=== PATIENT | male | born 1990 | race Caucasian/White ===

== ENCOUNTER 2019-10-31 19:03 | Emergency (ER) | payer SELFPAY ==
[~2019-10-31] VITALS: Ht 162.6 cm; Wt 73.0 kg
[2019-10-31 19:17] VITALS: Ht 162.6 cm; Wt 73.0 kg
[2019-10-31 21:41] VITALS: BP 125/82
== END 2019-10-31 21:41 | disposition home or self-care (01) ==
LOC: ED 19:03
DX: R04.0 Epistaxis (principal); L98.9 Disorder of the skin and subcutaneous tissue, unspecified

== ENCOUNTER 2019-11-06 16:21 | Emergency (ER) | payer SELFPAY ==
[~2019-11-06] VITALS: Ht 167.6 cm; Wt 72.1 kg
[2019-11-06 16:52] VITALS: Ht 167.6 cm; Wt 72.1 kg
[2019-11-06 17:17] VITALS: BP 131/84
== END 2019-11-06 17:17 | disposition home or self-care (01) ==
LOC: ED 16:21
DX: L76.22 Postprocedural hemorrhage of skin and subcutaneous tissue following other procedure (principal); S01.21XA Laceration without foreign body of nose, initial encounter; X58.XXXA Exposure to other specified factors, initial encounter; Y93.89 Activity, other specified; Y92.89 Other specified places as the place of occurrence of the external cause; Y99.8 Other external cause status

== ENCOUNTER 2019-11-09 22:13 | Emergency (ER) | payer SELFPAY ==
[~2019-11-09] VITALS: Ht 162.6 cm; Wt 74.0 kg
[2019-11-09 23:01] VITALS: Ht 162.6 cm; Wt 74.0 kg
[2019-11-10 00:52] VITALS: BP 129/76
== END 2019-11-10 00:52 | disposition home or self-care (01) ==
LOC: ED 22:13
DX: R04.0 Epistaxis (principal); D18.09 Hemangioma of other sites; F10.20 Alcohol dependence, uncomplicated
CPT/HCPCS: J2001

== ENCOUNTER 2019-11-12 17:36 | Emergency (ER) | payer SELFPAY ==
[~2019-11-12] VITALS: Ht 162.6 cm; Wt 73.9 kg
[2019-11-12 18:22] VITALS: Ht 162.6 cm; Wt 73.9 kg
[2019-11-12 19:01] VITALS: BP 136/80
== END 2019-11-12 19:01 | disposition home or self-care (01) ==
LOC: ED 17:36
DX: S01.21XD Laceration without foreign body of nose, subsequent encounter (principal); X58.XXXD Exposure to other specified factors, subsequent encounter

== ENCOUNTER 2019-11-16 15:02 | Emergency (ER) | payer SELFPAY ==
[~2019-11-16] VITALS: Ht 162.6 cm; Wt 72.6 kg
[2019-11-16 15:12] VITALS: Ht 162.6 cm; Wt 72.6 kg
[2019-11-16 15:25] VITALS: BP 127/78
== END 2019-11-16 15:25 | disposition home or self-care (01) ==
LOC: ED 15:02
DX: S01.21XD Laceration without foreign body of nose, subsequent encounter (principal); X58.XXXD Exposure to other specified factors, subsequent encounter